=== PATIENT | male | born 1955 | race Caucasian/White ===

== ENCOUNTER 2019-05-08 07:37 | Emergency (ER) | payer BC, OTHER ==
[2019-05-08 07:53] VITALS: BP 139/76
--- NOTE | 2019-05-08 08:42 | UC ---
Hand/Wrist HPI - HPI Summary HPI Summary: right thumb pain x 2 hrs crushing injury to his right thumb at work as he was loading the truck pain / swelling / bruising tip of the right thumb + small laceration at the tip of the right thumb pain is 4 out of 10 , worse with movement , better with rest and ice - History Of Current Complaint Chief Complaint: UCWounds Stated Complaint: RIGHT THUMB INJURY Time Seen by Provider: 05/08/19 07:52 Hx Obtained From: Patient Onset/Duration: Sudden Onset, Lasting Hours - 2, Still Present Severity Initially: Moderate Severity Currently: Moderate Pain Intensity: 4 Character Of Pain: Throbbing Aggravating Factor(s): Movement Alleviating Factor(s): Rest, Ice Associated Signs And Symptoms: Positive: Swelling, Bruising. Negative: Redness , Weakness, Numbness/Tingling - Allergies/Home Medications Allergies/Adverse Reactions: Allergies Allergy/AdvReac Type Severity Reaction Status Date / Time amoxicillin [From Augmentin] Allergy Diarrhea Verified 05/08/19 07:54 clavulanic acid Allergy Diarrhea Verified 05/08/19 07:54 [From Augmentin] Home Medications: Home Medications Budesonide/Formote 160/4.5(NF) [Symbicort 160/4.5 (NF)] 1 puff INH BID 05/08/19 [History Confirmed 05/08/19] PMH/Surg Hx/FS Hx/Imm Hx - Additional Past Medical History Additional PMH: high cholesterol - Surgical History Surgical History: Yes Surgery Procedure, Year, and Place: TONSILLECTOMY - Family History Known Family History: Positive: Non-Contributory - Social History Alcohol Use: Daily Alcohol Amount: 3-4 per day Substance Use Type: None Smoking Status (MU): Former Smoker When Did the Patient Quit Smoking/Using Tobacco: 1998 - Immunization History Most Recent Tetanus Shot: 7 YEARS AGO Review of Systems All Other Systems Reviewed And Are Negative: Yes Constitutional: Positive: Negative Skin: Positive: Negative Eyes: Positive: Negative ENT: Positive: Negative Respiratory: Positive: Negative Is Patient Immunocompromised?: No Physical Exam Triage Information Reviewed: Yes Appearance: Well-Appearing, No Pain Distress, Well-Nourished Vital Signs: Initial Vital Signs Temp 97.3 F 05/08/19 07:48 Pulse 79 05/08/19 07:48 Resp 18 05/08/19 07:48 BP 139/76 07/23/19 07:48 Pulse Ox 96 05/08/19 07:48 Eye Exam: Normal Eyes: Positive: Conjunctiva Clear ENT: Positive: Normal ENT inspection, Hearing grossly normal, Pharynx normal Neck: Positive: Supple, Nontender, No Lymphadenopathy Respiratory: Positive: Chest non-tender, Lungs clear, Normal breath sounds Cardiovascular: Positive: RRR, No Murmur, Pulses Normal Musculoskeletal: Positive: Other: - right distal thumb : + swelling, bruising , tender to touch, small laceration 1/4 cm in lenght good ROM on flexion and extension Diagnostics - Laboratory Lab Results: xray report right thumb : IMPRESSION: Soft tissue swelling. No fracture is noted. Hand/Wrist Course/Dx - Differential Dx/Diagnosis Provider Diagnosis: Crushing injury of thumb, right, Laceration of right thumb Discharge - Sign-Out/Discharge Documenting (check all that apply): Patient Departure All imaging exams completed and their final reports reviewed: Yes - Discharge Plan Condition: Stable Disposition: HOME Patient Education Materials: Laceration Without Closure (ED), Crush Injury (ED) Forms: *Work Release Referrals: Mookie Hope DO [Primary Care Provider] - 7 Days - Billing Disposition and Condition Condition: STABLE Disposition: Home
== END 2019-05-08 08:43 | disposition home or self-care (01) ==
LOC: UCCORT 07:37
DX: S67.01XA Crushing injury of right thumb, initial encounter (principal); S61.011A Laceration without foreign body of right thumb without damage to nail, initial encounter; X58.XXXA Exposure to other specified factors, initial encounter; Y93.89 Activity, other specified; Y92.89 Other specified places as the place of occurrence of the external cause; Z88.0 Allergy status to penicillin; Z87.891 Personal history of nicotine dependence
CPT/HCPCS: 99202; G0463